=== PATIENT | female | born 1980 | race Caucasian/White ===

== ENCOUNTER 2016-07-04 06:26 | Emergency (ER) | payer BC, MEDICAID, OTHER ==
[~2016-07-04] VITALS: Ht 167.6 cm; Wt 79.4 kg
[~2016-07-04 06:26] MED LIST: CARI-277
[2016-07-04 07:40] LABS: Basophils # (auto) 0 uL; Basophils % (auto) 0.1 % (0.0-2.0); Eosinophils # (auto) 0 uL; Eosinophils % (auto) 0.2 % (0.0-7.0); Hemoglobin 14.8 g/dL (12.2-16.2); Lymphocytes % (auto) 8.8 % (10.0-50.0); Mean Corpuscular Hemoglobin 29.1 pg (28.0-32.0); Mean Corpuscular Hgb Conc. 32.9 g/dL (32.0-36.0); Mean Corpuscular Volume 88.2 fL (80.0-100.0); Monocytes # (auto) 0.6 uL; Monocytes % (auto) 5.4 % (0.0-12.0); Neutrophils % (auto) 85.5 % (37.0-80.0); Platelet Count (auto) 221 10^3/uL (140-450); Red Cell Distribution Width 13.1 % (11.6-16.0); White Blood Cell 11.7 10^3/uL (4.4-10.8)
[2016-07-04 08:00] LABS: Albumin 3.8 g/dL (3.4-5.0); BUN/Creatinine Ratio 14.8; Bilirubin, Total 0.4 mg/dL (0.2-1.0); Calcium 8.8 mg/dL (8.5-10.1); Potassium 3.1 mmol/L (3.5-5.1); Total Protein 7.4 g/dL (6.4-8.2)
[2016-07-04 08:14] LABS: Urine Bilirubin Negative (Negative); Urine Blood Negative /uL (Negative); Urine Color Yellow (Yellow); Urine Glucose Normal (Normal); Urine Mucus FEW (None Seen); Urine Nitrite Negative (Negative); Urine RBC 2 /hpf (0 - 4); Urine Squamous Epithelial Cell FEW /hpf (<5); Urine Urobilinogen Normal (Negative)
[2016-07-04 08:16] LABS: Urine Ketone 1+ (Negative)
[2016-07-04] MEDS ORDERED: SOD CHL 0.9%/ KCL 20MEQ 1,000 ML IV ONE (11:00)
[2016-07-04] MEDS ORDERED: PROCHLORPERAZINE EDISYLATE 5 MG/ML 2ML VIAL IV ONE (11:00)
[2016-07-04 11:26] VITALS: BP 158/96
== END 2016-07-04 14:17 | disposition home or self-care (01) ==
LOC: ER 06:37
DX: G43.909 Migraine, unspecified, not intractable, without status migrainosus (principal); E87.6 Hypokalemia; R82.71 Bacteriuria; F12.10 Cannabis abuse, uncomplicated; G51.0 Bell's palsy
CPT/HCPCS: 36415; 80053; 81001; 81025; 83735; 84702; 85025; 96361; 96374; 99285; J0780

== ENCOUNTER 2018-01-11 18:32 | Emergency (ER) | payer BC, OTHER ==
[~2018-01-11] VITALS: Ht 167.6 cm; Wt 87.1 kg
[2018-01-11 19:21] LABS: Basophils # (auto) 0 uL; Basophils % (auto) 0.4 % (0.0-2.0); Eosinophils # (auto) 0.1 uL; Eosinophils % (auto) 0.8 % (0.0-7.0); Hematocrit 42.4 % (36.0-46.0); Hemoglobin 14.6 g/dL (12.2-16.2); Lymphocytes # (auto) 2.1 uL; Lymphocytes % (auto) 31.3 % (10.0-50.0); Mean Corpuscular Hemoglobin 30.4 pg (28.0-32.0); Mean Corpuscular Hgb Conc. 34.4 g/dL (32.0-36.0); Mean Corpuscular Volume 88.4 fL (80.0-100.0); Monocytes # (auto) 0.5 uL; Monocytes % (auto) 7.9 % (0.0-12.0); Neutrophils % (auto) 59.6 % (37.0-80.0); Nucleated Red Blood Cells % 0.1 %; Platelet Count (auto) 210 10^3/uL (140-450); Red Cell Distribution Width 12.9 % (11.8-14.3); White Blood Cell 6.7 10^3/uL (4.4-10.8)
[2018-01-11 19:44] LABS: Albumin 3.7 g/dL (3.4-5.0); Calcium 8.4 mg/dL (8.5-10.1); Potassium 3.7 mmol/L (3.5-5.1)
[2018-01-11 19:46] LABS: BUN/Creatinine Ratio 14.8
[2018-01-11 19:50] LABS: Bilirubin, Total 0.3 mg/dL (0.2-1.0); Total Protein 7.5 g/dL (6.4-8.2)
[2018-01-11 20:35] LABS: Urine Bacteria MOD /hpf (None Seen); Urine Blood Negative /uL (Negative); Urine Mucus FEW (None Seen); Urine Specific Gravity 1.007 (1.001-1.035); Urine WBC 1 /hpf (0 - 5)
[2018-01-11] MEDS ORDERED: KETOROLAC TROMETH 30 MG/ML 1ML VIAL IV ONE (21:30)
[2018-01-11] MEDS ORDERED: PANTOPRAZOLE 40 MG/10 ML VIAL IV ONE (22:00)
[2018-01-11 22:30] VITALS: BP 151/95
== END 2018-01-11 23:04 | disposition home or self-care (01) ==
LOC: ER 18:32
DX: N20.0 Calculus of kidney (principal)
CPT/HCPCS: 36415; 74176; 80053; 81001; 81025; 82150; 83690; 85025; 96374; 96375; 99285; C9113; J1885; J7030

== ENCOUNTER 2022-01-22 15:15 | Emergency (ER) | payer MEDICAID ==
[~2022-01-22] VITALS: Ht 167.6 cm; Wt 66.0 kg
[2022-01-22 16:52] LABS: Basophils # (auto) 0 10 ^3/uL (0-0.2); Basophils % (auto) 0.5 % (0.0-2.0); Eosinophils # (auto) 0.1 10 ^3/uL (0-0.8); Hematocrit 43.4 % (36.0-46.0); Hemoglobin 14.4 g/dL (12.2-16.2); Lymphocytes # (auto) 1.9 10 ^3/uL (0.4-5.4); Lymphocytes % (auto) 30.2 % (10.0-50.0); Mean Corpuscular Hemoglobin 28.3 pg (28.0-32.0); Mean Corpuscular Hgb Conc. 33.1 g/dL (32.0-36.0); Mean Corpuscular Volume 85.3 fL (80.0-100.0); Monocytes # (auto) 0.5 10 ^3/uL (0-1.3); Neutrophils # (auto) 3.7 10 ^3/uL (1.6-8.6); Neutrophils % (auto) 60.3 % (37.0-80.0); Red Blood Cells 5.09 10^6/uL (4.0-5.20); Red Cell Distribution Width 13.7 % (11.8-14.3); White Blood Cell 6.2 10^3/uL (4.4-10.8)
[2022-01-22 17:11] LABS: Albumin 4.1 g/dL (3.4-5.0); BUN/Creatinine Ratio 21.6; Calcium 8.8 mg/dL (8.5-10.1); Potassium 3.1 mmol/L (3.5-5.1)
[2022-01-22 17:14] LABS: Bilirubin, Total 0.5 mg/dL (0.2-1.0); Total Protein 7.7 g/dL (6.4-8.2)
[2022-01-22] MEDS ORDERED: KETOROLAC TROMETH 60MG/2ML VIAL IM ONE (22:00)
[2022-01-22] MEDS ORDERED: POTASSIUM CHL 20 Meq TABLET PO ONE (22:15)
[2022-01-22 23:07] VITALS: BP 132/87
== END 2022-01-22 23:09 | disposition home or self-care (01) ==
LOC: ER 15:15
DX: R07.89 Other chest pain (principal); F41.0 Panic disorder [episodic paroxysmal anxiety]; E87.6 Hypokalemia; Z79.899 Other long term (current) drug therapy; Z91.018 Allergy to other foods
CPT/HCPCS: 36415; 71045; 80053; 84484; 85025; 93005; 99285; J1885